=== PATIENT | female | born 1930 | race Caucasian/White ===

== ENCOUNTER 2017-01-20 17:23 | Inpatient (IN) | payer OTHER ==
[~2017-01-20] VITALS: Ht 152.4 cm; Wt 58.5 kg
[~2017-01-20 17:23] MED LIST: ALEN70TA30 PO; AMLO5TAB4 PO; DOCU-159 PO; HYDR-3498 PO; HYDR12.58 PO; LEVO88TA PO; LOVA20TA PO; METO25TA7 PO; PANT20TA3 PO; SITA50TA2 PO
[2017-01-20] MEDS ORDERED: NITROGLYCERIN 2% 1 GM OINT PKT TD STA (18:14)
[2017-01-20] MEDS ORDERED: ASPIRIN 81 MG TAB PO STA (18:14)
[2017-01-20 18:44] LABS: BASOPHILS % 0.2 % (0.0-2.0); EOSINOPHILS # 0.2 10^3/ul (0.0-0.5); EOSINOPHILS % 2.6 % (0.0-7.0); HEMATOCRIT 30.8 % (37.0-47.0); LYMPHOCYTES # 2.1 10^3/ul (0.8-2.9); LYMPHOCYTES % 25.3 % (15.0-51.0); MEAN CORPUSCULAR HEMOGLOBIN 29.4 pg (29.0-33.0); MEAN CORPUSCULAR HGB CONC 32.5 g/dl (32.0-37.0); MEAN CORPUSCULAR VOLUME 90.6 fl (82.0-101.0); MEAN PLATELET VOLUME 11.5 fl (7.4-10.4); MONOCYTE # 0.8 10^3/ul (0.3-0.9); MONOCYTES % 9.1 % (0.0-11.0); NEUTROPHILS % 62.4 % (39.0-77.0); PLATELET COUNT 182 10^3/UL (140-415); RED CELL DISTRIBUTION WIDTH 13.1 % (11.5-14.5); WHITE BLOOD COUNT 8.4 10^3/ul (4.8-10.8)
[2017-01-20 19:03] LABS: CALCIUM 8.4 mg/dl (8.4-10.2); CREATININE 2.22 mg/dl (0.44-1.00); POTASSIUM 5.2 mmol/L (3.5-5.1)
--- NOTE | 2017-01-20 19:03 | RADRPT ---
PROCEDURE: XR Chest. CLINICAL INDICATION: Chest pain. TECHNIQUE: Anterior chest x-ray. COMPARISON: None. FINDINGS: There is bibasilar subsegmental atelectasis. The lungs are otherwise clear. No pleural effusion identified. There is no evidence of pneumothorax. Heart size is large. There is atherosclerotic calcification of the aorta. There are median sternotom y wires and vascular clips suggesting prior CABG. The soft tissues are normal. Degenerative changes are noted in the bilateral shoulders and thoracic spine. IMPRESSION: 1. Cardiomegaly 2. Bibasilar atelectasis. 3. Atherosclerotic calcification of the aorta. 4. No evidence of pneumonia, effusion or pneumothorax. RPTAT: QQ .Aamir Hernandez MD, MD Date Time Electronically viewed and signed by .Aamir Hernandez MD, on 01/20/2017 19:02 .M/
[2017-01-20] MEDS ORDERED: METOPROLOL 5 MG INJ IV STA (19:13)
--- NOTE | 2017-01-20 19:13 | ERA ---
ER Documentation Chief Complaint Date/Time DATE: 01/20/17 TIME: 19:11 Chief Complaint chest disconfort today HPI This is a very pleasant 86-year-old female history of coronary disease status post CABG who presents because of chest pain. She describes it as a weight over the center of her chest that started this morning it is constant and nonexertional. She denies any back pain or pleuritic pain, no fevers or chills. She denies that this is her anginal equivalent and she describes that is more likely fatigue. She does not feel fatigued today. ROS All systems reviewed and are negative except as per history of present illness. Medications Home Meds Active Scripts Hydrocodone Bit-Acetaminophen* ([place]*) 5-325 Mg Tab, 1 TAB PO Q6 Y for PAIN, # 7 TAB Prov:AMBER JOYNERSON 10/16/15 Reported Medications Levothyroxine Sodium* (Synthroid*) 88 Mcg Tablet, 88 MCG PO BEFORE BREAKFAST, # 30 TAB 10/16/15 Pantoprazole* (Pantoprazole*) 20 Mg Tablet.dr, 20 MG PO DAILY, TAB 10/16/15 Metoprolol Succinate* (Toprol XL*) 25 Mg Tab.sr.24h, 25 MG PO DAILY, #30 TAB 10/16/15 Lovastatin* (Lovastatin*) 20 Mg Tablet, 40 MG PO HS, TAB 10/16/15 Sitagliptin* (Januvia*) 50 Mg Tablet, 50 MG PO DAILY, #30 TAB 10/16/15 Hydrochlorothiazide* (Hydrochlorothiazide*) 12.5 Mg Tablet, 12.5 MG PO DAILY, # 30 TAB 10/16/15 Docusate Sodium* (Docusate Sodium*) 100 Mg Capsule, 100 MG PO BID, #60 CAP 10/16/15 Amlodipine Besylate* (Norvasc*) 5 Mg Tablet, 5 MG PO DAILY, TAB 10/16/15 Alendronate Sodium* (Fosamax*) 70 Mg Tablet, 70 MG PO Q7D, #4 TAB 10/16/15 Allergies Allergies: Coded Allergies: Penicillins (Verified Allergy, Mild, 10/16/15) PMhx/Soc Hx Psychiatric Problems: No Hx Alcohol Use: No Hx Substance Use: No Hx Tobacco Use: No FmHx Family History: No diabetes Physical Exam Vitals Vital Signs Date Time Temp Pulse Resp B/P Pulse Ox O2 Delivery O2 Flow Rate FiO2 01/20/17 18:40 Nasal Cannula 2 01/20/17 17:24 98.1 72 18 194/75 96 Physical Exam General: Well developed, well nourished, no acute distress Head: Normocephalic, atraumatic. Eyes: Pupils equally reactive, EOM intact ENT: Moist mucous membranes Neck: Supple, no lymphadenopathy Respiratory: Lungs clear bilaterally, no distress Cardiovascular: RRR, no murmurs, rubs, or gallops Abdominal: Soft, non-tender, non-distended, no peritoneal signs : Deferred MSK: No edema, no unilateral swelling, 5/5 strength Neurologic: Alert and oriented, moving all extremities, normal speech, no focal weakness, no cerebellar signs Skin: No rash Psych: Normal mood Result Diagram: 01/20/17181901/20/171819 Results 24 hrs Laboratory Tests Test 01/20/17 18:20 White Blood Count 8.410^3/ul Red Blood Count 3.4010^6/ul Hemoglobin 10.0g/dl Hematocrit 30.8% Mean Corpuscular Volume 90.6fl Mean Corpuscular Hemoglobin 29.4pg Mean Corpuscular Hemoglobin Concent 32.5g/dl Red Cell Distribution Width 13.1% Platelet Count 30744^3/UL Mean Platelet Volume 11.5fl Neutrophils % 62.4% Lymphocytes % 25.3% Monocytes % 9.1% Eosinophils % 2.6% Basophils % 0.2% Nucleated Red Blood Cells % 0.0/100WBC Neutrophils # (Manual) 5.210^3/ul Lymphocytes # 2.110^3/ul Monocytes # 0.810^3/ul Eosinophils # 0.210^3/ul Basophils # 0.010^3/ul Nucleated Red Blood Cells # 0.010^3/ul Sodium Level 134mmol/L Potassium Level 5.2mmol/L Chloride Level 102mmol/L Carbon Dioxide Level 24mmol/L Anion Gap 13 Blood Urea Nitrogen 44mg/dl Creatinine 2.22mg/dl Glucose Level 137mg/dl Calcium Level 8.4mg/dl Troponin I 0.013ng/ml Current Medications Medications (Trade) Dose Ordered Sig/Hamzah Route PRN Reason Start Time Stop Time Status Last Admin Dose Admin Aspirin (Aspirin) 162 mg ONCE STAT PO 01/20/17 18:14 01/20/17 18:15 DC 01/20/17 18:30 Nitroglycerin (Nitroglycerin 2% Oint) 1 inch ONCE STAT TD 01/20/17 18:14 01/20/17 18:15 DC 01/20/17 18:29 Metoprolol Tartrate (Lopressor) 5 mg ONCE STAT IV 01/20/17 19:13 01/20/17 19:14 DC 01/20/17 19:23 Ondansetron HCl (Zofran Inj) 4 mg ER BRIDGE PRN IV NAUSEA AND/OR VOMITING 01/20/17 20:30 01/21/17 20:29 Acetaminophen (Tylenol Tab) 650 mg ER BRIDGE PRN PO MILD PAIN/FEVER 01/20/17 20:30 01/21/17 20:29 Procedures/MDM EKG, MONITORS, & DIAGNOSTIC IMAGING: EKG: I reviewed and interpreted a 12-lead EKG. Rhythm: Normal sinus rhythm Ectopy: None Intervals: No abnormalities ST segments: No elevations or depressions T waves: T-wave inversions in inferior and lateral leads Repeat EKG: EKG: I reviewed and interpreted a 12-lead EKG. Rhythm: Normal sinus rhythm Ectopy: None Intervals: No abnormalities ST segments: No elevations or depressions T waves: T-wave inversions in inferior and lateral leads Chest x-ray: I reviewed and interpreted a 1 view of the chest Mediastinum: No enlargement Cardiac silhouette: No cardiomegaly Airspace: Clear lung moreira bilaterally without evidence of pneumothorax Bones: No evidence of fracture LAB INTERPRETATION: Negative troponin, creatinine elevation from baseline MEDICAL DECISION MAKING: The patient's history, physical exam and clinical presentation is concerning for possible cardiogenic etiology and acute coronary syndrome. Based on the patient's clinical exam and history and risk factors, I have a much lower clinical concern for pulmonary embolism, acute aortic dissection, pneumothorax, pneumonia, cardiac tamponade HEART Score: 5 MACE Rate: 16.6% Shared Decision Making: We had a conversation regarding risk stratification, MACE rate, and the risks, benefits, alternatives of disposition planning options. Disposition planning: Given the patient's risk factors strong concern for cardiac etiology. Hospitalization strongly recommended per ER COURSE: Aspirin, nitroglycerin provided. The patient remains significantly hypertensive. Metoprolol 5 provided. The patient's blood pressures improved. Her creatinine is elevated from baseline possibly secondary to hypertensive disease process. The patient will benefit from inpatient hospitalization for further management. I kept the patient and/or family informed of laboratory and diagnostic imaging results throughout the emergency room course. DISPOSITION PLAN: Telemetry admission for risk stratification, serial enzymes and consideration of provocative testing CONSULTATION: Accepting care team and consultations: I discussed the current laboratory data, diagnostic imaging and emergency care provided. Admitting team: Dr. Light Admitting team indication: Insurance directed Departure Diagnosis: Primary Impression: Chest pain Qualified Code: R07.9 - Chest pain, unspecified type Additional Impressions: Acute renal insufficiency Hypertensive emergency Condition: Stable NELLI CLEMENT MD Jan 20, 2017 19:13
[2017-01-20 19:14] LABS: TROPONIN-I 0.013 ng/ml (0.00-0.12)
[2017-01-20] MEDS ORDERED: ONDANSETRON 4 MG INJ IV PRN (20:30)
[2017-01-20] MEDS ORDERED: ACETAMINOPHEN 325 MG TAB PO PRN (20:30)
[2017-01-20] MEDS ORDERED: hydrALAzine 20 MG INJ IV ONE (21:00)
[2017-01-20 23:27] VITALS: PULSE 60
[2017-01-20 23:51] VITALS: Ht 152.4 cm; Wt 58.5 kg
[2017-01-21] VITALS (17 sets, daily range): BP systolic 137–194; BP diastolic 60–80; PULSE 56–69; RESP 17–20
[2017-01-21] MEDS ORDERED: hydrALAzine 20 MG INJ IV PRN (00:30)
[2017-01-21] MEDS: hydrALAzine 20 MG INJ IV PRN (00:40)
[2017-01-21 00:57] LABS: CREATINE KINASE 151 IU/L (23-200)
[2017-01-21] MEDS ORDERED: NACL 0.9% 3 ML SYG IV SCH (01:00)
[2017-01-21] MEDS ORDERED: NITROGLYCERIN (SL) 0.4 MG TAB SL PRN (01:00)
[2017-01-21] MEDS ORDERED: morphine 2 MG INJ IV PRN (01:00)
[2017-01-21] MEDS ORDERED: BISACODYL (EC) 5 MG TAB PO PRN (01:00)
[2017-01-21] MEDS ORDERED: ONDANSETRON 4 MG INJ IV PRN (01:00)
[2017-01-21] MEDS ORDERED: ACETAMINOPHEN 325 MG TAB PO PRN (01:00)
[2017-01-21] MEDS ORDERED: DOCUSATE SODIUM 100 MG CAP PO PRN (01:00)
[2017-01-21] MEDS ORDERED: KETOROLAC 30 MG INJ IV STA (01:05)
[2017-01-21 01:11] LABS: CK-MB 1.99 ng/ml (0.0-2.4)
[2017-01-21] MEDS ORDERED: DIAZEPAM 5 MG/ML SYG IV STA (01:11)
[2017-01-21] MEDS ORDERED: KETOROLAC 30 MG INJ ONE (01:15)
[2017-01-21 01:16] LABS: TROPONIN-I < 0.012 ng/ml (0.00-0.12)
[2017-01-21] MEDS ORDERED: LORAZEPAM 2 MG INJ ONE (01:18)
[2017-01-21] MEDS ORDERED: SOD CHLORIDE 0.9% 1,000 ML IV ONE (01:30)
[2017-01-21] MEDS ORDERED: LORAZEPAM 2 MG INJ IV ONE (01:30)
[2017-01-21] MEDS ORDERED: DIAZEPAM 5 MG/ML SYG IV SCH (02:05)
[2017-01-21] MEDS ORDERED: MENTHOL/METH SALICYLATE 30 GM OINT TOP PRN (02:30)
--- NOTE | 2017-01-21 05:18 | HP ---
Date/Time of Note Date/Time of Note DATE: 01/21/17 TIME: 05:07 Assessment/Plan VTE Prophylaxis VTE Prophylaxis Intervention: SCD's Lines/Catheters IV C[facility]ter Type (from [facility]): Peripheral IV Urinary Cath still in place: No Assessment/Plan Chief Complaint/Hosp Course This is a 86-year-old female being admitted to the telemetry floor for: #1 chest pain: Rule out ACS. Patient has a history of CABG. At the current time will trend cardiac enzymes 3, first set negative. Will check a echocardiogram in the a.m. Consult cardiology. #2 muscle cramping: Possibly secondary to electrolyte abnormalities and/or mild dehydration. Will follow electrolytes. Will provide the patient with IV fluid hydration with normal saline bolus and maintenance. #3 Renal failure, acute versus chronic: Patient's previous creatinine was 1.3 in 2016 today it is 2.2. Will provide IV fluid hydration with normal saline 1 L bolus as well as maintenance fluid of normal saline. Will check a microscopic urine and a random sodium urine. Will consult nephrology. #4 hypertension: We will continue to monitor blood pressure, resume home medications #5 diabetes mellitus: Check hemoglobin A1c, insulin sliding scale #6 hypothyroidism: Check a TSH level, resume levothyroxine #7 DVT and GI prophylaxis: SCDs, acid rachid Further treatment strategy will be implemented as per the clinical course Problems: HPI/ROS Admit Date/Time Admit Date/Time Jan 20, 2017 at 20:07 Hx of Present Illness Chief complaint: Chest pressure This is a very pleasant 86-year-old female history of coronary disease status post CABG who presents because of chest pain. She describes it as a weight over the center of her chest that started this morning it is constant and nonexertional. She denies any back pain or pleuritic pain, no fevers or chills. She denies that this is her anginal equivalent and she describes that is more likely fatigue. She does not feel fatigued today. Upon my examination the patient she was in excruciating pain of her left lower extremity, the left lower extremity was visibly cramping. Patient states that she has been dealing with these cramps on a daily basis. She does take potassium supplements at home. Warm compresses placed by the RN at the bedside and the patient's left lower extremity and patient was given a massage along with normal saline bolus as well as Toradol and Valium and Bengay. Patient experienced relief after that. Allergies: Penicillins medications: See Jul Const: As per HPI Eyes : No pain discharge or redness or change in visual acuity ENT: No pain, sore throat, congestion, congestion, dysphagia or discharge Respiratory: No shortness of breath, cough, sputum, wheezing, or pleuritic pain Cardiovascular: As per HPI GI : no change in appetite, abdominal pain, nausea, vomiting, diarrhea, constipation, or change in the color his stool Genitourinary: No dysuria, hematuria, flank pain , discharge or CVA tenderness Musculoskeletal: As per HPI Skin: No rash, bruising or hives Neuro: No headache, dizziness, syncope, seizure, focal weakness Endocrine: No polyuria, polydipsia, temperature intolerance Psych: No hallucination, depression, anxiety or suicidal ideation PMH/Family/Social Past Medical History Hypertension, diabetes mellitus, hypothyroid, osteoporosis Past Surgical History CABG Family History Significant Family History: no pertinent family hx Social History Alcohol Use: none Smoking Status: Never smoker Drug Use: none Exam/Review of Systems Vital Signs Vitals Vital Signs Date Time Temp Pulse Resp B/P Pulse Ox O2 Delivery O2 Flow Rate FiO2 01/21/17 03:57 98.3 79 18 158/70 97 01/20/17 23:09 Room Air 01/20/17 18:40 2 Exam Exam General: Patient was lying in bed screaming in pain secondary to severe left lower extremity cramping, she did ultimately have relief through IV fluids, warm compression massage, Toradol Valium, BenGay.. HEENT: Atraumatic, normocephalic. The pupils are equal, round and reactive. Extraocular motor are intact Neck: Supple with full range of motion. No rigidity or meningismus Chest: Nontender Lungs: Clear to auscultation bilaterally no crackles rales or wheezing Heart: Normal S1-S2, Regular rhythm and rate. No overt murmur appreciated Abdomen: Soft , nontender, nondistended , bowel sounds are present. No guarding no rebound tenderness , No masses or organomegaly. No costovertebral temporal angle mass Extremities: Left lower extremity cramping with visible contraction. Neurologic: Normal mental status, speech normal, cranial nerves II through XII are intact, motor and sensory are intact, no focal weakness Additional Comments PROCEDURE: XR Chest. CLINICAL INDICATION: Chest pain. TECHNIQUE: Anterior chest x-ray. COMPARISON: None. FINDINGS: There is bibasilar subsegmental atelectasis. The lungs are otherwise clear. No pleural effusion identified. There is no evidence of pneumothorax. Heart size is large. There is atherosclerotic calcification of the aorta. There are median sternotomy wires and vascular clips suggesting prior CABG. The soft tissues are normal. Degenerative changes are noted in the bilateral shoulders and thoracic spine. IMPRESSION: 1. Cardiomegaly 2. Bibasilar atelectasis. 3. Atherosclerotic calcification of the aorta. 4. No evidence of pneumonia, effusion or pneumothorax. RPTAT: QQ .Aamir Hernandez MD, MD Date Time Electronically viewed and signed by .Aamir Hernandez MD, on 01/20/2017 19: 02 .M/ CC: NLELI CLEMENT MD EKG: Rhythm: Normal sinus rhythm Ectopy: None Intervals: No abnormalities ST segments: No elevations or depressions T waves: T-wave inversions in inferior and lateral leads As per ED physician augmentation Labs Result Diagram: 01/20/17181901/20/17 182 Medications Medications Current Medications Hydralazine HCl (Apresoline) 10 mg Q4H PRN IV ELEVATED BLOOD PRESSURE; Start at 00:30 Hydralazine HCl (Apresoline) 20 mg Q4H PRN IV ELEVATED BLOOD PRESSURE Last administered on 01/21/17t 00:40; Admin Dose 20 MG; Start 01/21/17 at 00:30 Ondansetron HCl (Zofran Inj) 4 mg Q6H PRN IV NAUSEA AND/OR VOMITING; Start 03/29 at 01:00 Aspirin (Aspirin) 81 mg DAILY PO ; Start 01/21/17 at 09:00 Nitroglycerin (Nitroglycerin (Sl Tab) 0.4 Mg) 1 tab Q5M PRN SL CHEST PAIN; Start 01/21/17 at 01:00 Acetaminophen (Tylenol Tab) 650 mg Q6H PRN PO PAIN LEVEL 1-3 OR FEVER; Start at 01:00 Morphine Sulfate (morphine) 2 mg Q4H PRN IV PAIN LEVEL 7-10; Start 01/21/17 at 01:00 Docusate Sodium (Colace) 100 mg Q12H PRN PO CONSTIPATION; Start 01/21/17 at 01: 00 Bisacodyl (Dulcolax) 5 mg DAILY PRN PO CONSTIPATION; Start 01/21/17 at 01:00 Famotidine (Pepcid) 20 mg DAILY PO ; Start 01/21/17 at 09:00 Menthol/Methyl Salicylate (Ra Jolly) 1 applic TID PRN TOP PRN Last administered on 01/21/17t 03:20; Admin Dose 1 APPLIC; Start 01/21/17 at 02:30 Amlodipine Besylate (Norvasc) 5 mg DAILY PO ; Start 01/21/17 at 09:00 Metoprolol Succinate (Toprol Xl) 25 mg DAILY PO ; Start 01/21/17 at 09:00 Atorvastatin Calcium (Lipitor) 10 mg HS PO ; Start 01/21/17 at 21:00 RYAN CHASE Jan 21, 2017 05:18
[2017-01-21] MEDS: SOD CHLORIDE 0.9% 1,000 ML IV SCH ×2 (05:54→21:05)
[2017-01-21] MEDS ORDERED: DIAZEPAM 5 MG/ML SYG IV PRN (06:00)
[2017-01-21] MEDS: LEVOTHYROXINE 88 MCG TAB PO SCH (07:00)
[2017-01-21 07:47] LABS: BASOPHILS % 0.2 % (0.0-2.0); EOSINOPHILS # 0.1 10^3/ul (0.0-0.5); EOSINOPHILS % 0.9 % (0.0-7.0); HEMATOCRIT 29.3 % (37.0-47.0); HEMOGLOBIN 9.2 g/dl (12.0-16.0); LYMPHOCYTES # 1.3 10^3/ul (0.8-2.9); LYMPHOCYTES % 15.5 % (15.0-51.0); MEAN CORPUSCULAR HEMOGLOBIN 28.7 pg (29.0-33.0); MEAN CORPUSCULAR HGB CONC 31.4 g/dl (32.0-37.0); MEAN CORPUSCULAR VOLUME 91.3 fl (82.0-101.0); MEAN PLATELET VOLUME 11.5 fl (7.4-10.4); MONOCYTE # 0.5 10^3/ul (0.3-0.9); MONOCYTES % 6.1 % (0.0-11.0); NEUTROPHILS % 76.8 % (39.0-77.0); PLATELET COUNT 167 10^3/UL (140-415); RED BLOOD COUNT 3.21 10^6/ul (4.20-5.40); RED CELL DISTRIBUTION WIDTH 13.2 % (11.5-14.5); WHITE BLOOD COUNT 8.1 10^3/ul (4.8-10.8)
[2017-01-21 08:23] LABS: ALBUMIN 2.7 g/dl (3.3-4.9); ALBUMIN/GLOBULIN RATIO 1.03; BILIRUBIN,INDIRECT 0.1 mg/dl (0-1.1); BILIRUBIN,TOTAL 0.1 mg/dl (0.2-1.3); CALCIUM 7.9 mg/dl (8.4-10.2); CREATININE 1.73 mg/dl (0.44-1.00); POTASSIUM 4.4 mmol/L (3.5-5.1); TOTAL PROTEIN 5.3 g/dl (6.1-8.1)
[2017-01-21 08:26] LABS: CK-MB 3.81 ng/ml (0.0-2.4); TROPONIN-I 0.117 ng/ml (0.00-0.12)
[2017-01-21] MEDS ORDERED: AMLODIPINE 5 MG TAB PO SCH (09:00)
[2017-01-21] MEDS: ASPIRIN 81 MG TAB PO SCH (09:46)
[2017-01-21] MEDS: FAMOTIDINE 20 MG TAB PO SCH (09:46)
[2017-01-21] MEDS: METOPROLOL (XL) 25 MG TAB PO SCH (09:48)
[2017-01-21 12:41] LABS: ADD UMIC YES; UR ASCORBIC ACID NEGATIVE (NEGATIVE); UR BACTERIA FEW /HPF (NONE SEEN); UR BILIRUBIN (Dip) NEGATIVE (NEGATIVE); UR BLOOD (Dip) NEGATIVE (NEGATIVE); UR BUDDING YEAST FEW /HPF (NONE SEEN); UR CLARITY CLEAR (CLEAR); UR COLOR YELLOW (YELLOW); UR GLUCOSE (Dip) NEGATIVE (NEGATIVE); UR KETONES (Dip) NEGATIVE (NEGATIVE); UR LEUKOCYTE ESTERASE (Dip) 2+ Leu/ul (NEGATIVE); UR NITRITE (Dip) NEGATIVE (NEGATIVE); UR RBC 1 /HPF (0-5); UR SPECIFIC GRAVITY (Dip) 1.006 (1.003-1.030); UR TOTAL PROTEIN (Dip) 2+ mg/dl (NEGATIVE); UR UROBILINOGEN (Dip) NEGATIVE (NEGATIVE)
--- NOTE | 2017-01-21 16:04 | RADRPT ---
Echocardiogram Report Patient Name: JEANIE PEDRAZA Gender: Female Date: 1930 Study Date: 21-Jan-2017 Core Blower Operator: Lavelle Taylor [facility] Location: 5550 Ref. Physician: RYAN CHASE Quality: Technically Difficult Study Procedures: Transthoracic echocardiogram with complete 2D, M-Mode, and doppler examination. Indications: Chest Pain. 2D/M Mode Doppler Measurement Value Normal Ranges Measurement Value Normal Ranges LVIDd 2D 4.4 3.5 - 5.6 cm AV Peak Rodriguez 1.9 m/sec LVIDs 2D 2.8 2.1 - 4.1 cm AV Peak PG 14.0 mmHg FS 2D 36.4 % AI Peak PG 72.0 mmHg LVPWd 2D 1.3 0.6 - 1.1 cm AI Peak Rodriguez 4.2 m/sec IVSd 2D 1.3 0.6 - 1.1 cm AI PHT 558.0 msec IVS/LVPW 2D 1.0 LVOT Peak Rodriguez 0.7 m/sec AoR Diam 2D 2.2 2.0 - 3.7 cm LVOT Peak PG 2.0 mmHg LA/Ao 2D 2 0 - 1 MV E Peak Rodriguez 1.2 m/sec EDV 2D 88.1 cm3 MV A Peak Rodriguez 1.7 m/sec ESV 2D 22.7 cm3 MV E/A 0.7 LA Dimen 2D 4.3 2.3 - 4.0 cm MV Peak Rodriguez 1.7 m/sec MV Peak PG 12.0 mmHg MV Mean Rodriguez 0.8 m/sec MV Mean PG 3.0 mmHg MV Decel Time 229 msec MV E/A 0.7 MV VTI 36.6 cm TR Peak Rodriguez 3.2 m/sec TR Peak PG 42.0 mmHg RVSP 45.0 mmHg Findings Left Ventricle: Overall, normal left ventricular systolic function. Not all segments visualized. Normal left ventricular cavity size. Mild concentric left ventricular hypertrophy. Ejection fraction is visually estimated at 55 %. Right Ventricle: Normal right ventricular size. Normal right ventricular systolic function. Left Atrium: There is mild enlargement of left atrium. Right Atrium: The right atrium is normal in size. Mitral Valve: Mitral valve leaflets appear moderately thickened. Mild mitral annular calcification. Trace mitral regurgitation. Aortic Valve: Aortic sclerosis without stenosis. Trace aortic valve regurgitation. Tricuspid Valve: Normal appearance and function of the tricuspid valve with trace physiologic regurgitation. Estimated peak PA systolic pressure 45 mmHg. Pulmonic Valve: Pulmonic valve not well visualized. There is mild to moderate pulmonic regurgitation. Pericardium: Normal pericardium with no significant pericardial effusion. Aorta: Normal aortic root. IVC: Normal size and normal respiratory collapse consistent with normal right atrial pressure. Conclusions Overall, normal left ventricular systolic function. Not all segments visualized. Normal left ventricular cavity size. Mild concentric left ventricular hypertrophy. Ejection fraction is visually estimated at 55 %. Normal right ventricular size. Normal right ventricular systolic function. There is mild enlargement of left atrium. The right atrium is normal in size. No significant valvular stenosis or regurgitation seen. Normal pericardium with no significant pericardial effusion. Electronically Signed By: González Sow 21-Jan-2017 16:03:38 -0700 Patient Name: JEANIE PEDRAZA Study Date: 21-Jan-2017 [id number]
--- NOTE | 2017-01-21 16:13 | CONS ---
Date/Time of Note Date/Time of Note DATE: 01/21/17 TIME: 16:05 Assessment/Plan Assessment/Plan Additional Assessment/Plan Fatigue and leg cramps Preserved ejection fraction CAD with history of CABG Diabetes Hypertension Acute kidney injury -In discussion with patient, she denies any chest pain or chest comfort. She complains of a "feeling" in chest yesterday which has since resolved. ECG does have inferolateral T-wave inversions, unclear if this is old or new. Serial cardiac enzymes remain negative and echocardiogram with preserved ejection fraction. She denies any exertional chest pain or shortness of breath. Given her renal dysfunction and atypical symptoms, would pursue aggressive medical management at the current time. Would recommend aspirin and statin therapy if no contraindication, beta-rachid as heart rate and blood pressure permits. Continue IV fluids, no KAREN inhibitor at the current time given acute kidney injury. Check venous Doppler Consultation Date/Type/Reason Admit Date/Time Jan 20, 2017 at 20:07 Type of Consultation: cv Reason for Consultation Cardiac evaluation Hx of Present Illness This is an 86-year-old female with past medical history of coronary artery disease with CABG in 2002, hypertension, diabetes who presents with multiple complaints. Patient states yesterday, she was feeling more tired and fatigued. She had a "feeling" in her mid chest and she became concerned. She denies chest pain, shortness of breath, dizziness. She complains of feeling tired in her chest. She does ambulate with occasional assistance and denies exertional chest pain or shortness of breath. She also complains of lower extremity cramping. Secondary to her fatigue, feeling in her chest and cramping of her legs, she came to the emergency room for further evaluation and care. Her cramping in her legs happens more so in the evening time. She denies exertional heaviness or cramping of her lower extremities. She currently denies any normal " feeling" in her chest. In 2002 when she had her CABG, this was secondary to a myocardial infarction which felt very different than her current symptoms. 12 point review of systems was performed with all pertinent positives and negatives mentioned above and all else is negative Past Medical History Medical History: coronary artery disease, diabetes, hypertension Past Surgical History Past Surgical Hx: coronary bypass surgery Family History Significant Family History: no pertinent family hx Social History Alcohol Use: none Smoking Status: Never smoker Drug Use: none Other Social History Lives at home, has a community coordinator Exam/Review of Systems Vital Signs Vitals Vital Signs Date Time Temp Pulse Resp B/P Pulse Ox O2 Delivery O2 Flow Rate FiO2 01/21/17 12:15 18 166/74 01/21/17 12:14 67 01/21/17 12:06 98.3 98 01/20/17 23:09 Room Air 01/20/17 18:40 2 Intake and Output 01/20/17 01/20/17 01/21/17 15:00 23:00 07:00 Intake Total 2000 ml Balance 2000 ml Exam No apparent distress, friend at bedside Constitutional: alert, oriented Head: normocephalic Respiratory: clear to auscultation, normal air movement Cardiovascular: other (S1-S2 heard), regular rate and rhythm Gastrointestinal: bowel sounds, non-tender, other (No guarding), soft Extremities: other (No edema) Results Result Diagram: 01/21/17 0657 01/21/17 0657 Results 24 hrs Laboratory Tests Test 01/20/17 18:20 01/21/17 00:20 01/21/17 00:35 01/21/17 03:52 White Blood Count 8.4 Red Blood Count 3.40 L Hemoglobin 10.0 L Hematocrit 30.8 L Mean Corpuscular Volume 90.6 Mean Corpuscular Hemoglobin 29.4 Mean Corpuscular Hemoglobin Concent 32.5 Red Cell Distribution Width 13.1 Platelet Count 182 Mean Platelet Volume 11.5 #H Neutrophils % 62.4 Lymphocytes % 25.3 Monocytes % 9.1 Eosinophils % 2.6 Basophils % 0.2 Nucleated Red Blood Cells % 0.0 Neutrophils # (Manual) 5.2 Lymphocytes # 2.1 Monocytes # 0.8 Eosinophils # 0.2 Basophils # 0.0 Nucleated Red Blood Cells # 0.0 Sodium Level 134 L Potassium Level 5.2 H Chloride Level 102 Carbon Dioxide Level 24 Anion Gap 13 Blood Urea Nitrogen 44 H Creatinine 2.22 H Glucose Level 137 Calcium Level 8.4 Troponin I 0.013 < 0.012 Magnesium Level 2.4 Creatine Kinase 151 Creatine Kinase Index 1.3 Creatinine Kinase MB (Mass) 1.99 Urine Color YELLOW Urine Clarity CLEAR Urine pH 7.0 Urine Specific [place] 1.006 Urine Ketones NEGATIVE Urine Nitrite NEGATIVE Urine Bilirubin NEGATIVE Urine Urobilinogen NEGATIVE Urine Leukocyte Esterase 2+ H Urine Microscopic RBC 1 Urine Microscopic WBC 12 H Urine Bacteria FEW A Urine Yeast (Budding) FEW A Urine Hemoglobin NEGATIVE Urine Random Creatinine 30.31 Urine Random Sodium 35 Urine Glucose NEGATIVE Urine Total Protein 157.0 H Test 01/21/17 06:53 01/21/17 06:57 Thyroid Stimulating Hormone (TSH) 1.090 White Blood Count 8.1 Red Blood Count 3.21 L Hemoglobin 9.2 L Hematocrit 29.3 L Mean Corpuscular Volume 91.3 Mean Corpuscular Hemoglobin 28.7 L Mean Corpuscular Hemoglobin Concent 31.4 L Red Cell Distribution Width 13.2 Platelet Count 167 Mean Platelet Volume 11.5 H Neutrophils % 76.8 Lymphocytes % 15.5 Monocytes % 6.1 Eosinophils % 0.9 Basophils % 0.2 Nucleated Red Blood Cells % 0.0 Neutrophils # (Manual) 6.3 Lymphocytes # 1.3 Monocytes # 0.5 Eosinophils # 0.1 Basophils # 0.0 Nucleated Red Blood Cells # 0.0 Sodium Level 136 Potassium Level 4.4 Chloride Level 107 Carbon Dioxide Level 24 Anion Gap 9 Blood Urea Nitrogen 38 H Creatinine 1.73 H Glucose Level 106 Hemoglobin A1c 6.3 H Calcium Level 7.9 L Total Bilirubin 0.1 L Direct Bilirubin 0.00 Indirect Bilirubin 0.1 Aspartate Amino Transf (AST/SGOT) 18 Alanine Aminotransferase (ALT/SGPT) 19 Alkaline Phosphatase 67 Creatine Kinase 272 H Creatine Kinase Index 1.4 Creatinine Kinase MB (Mass) 3.81 H Troponin I 0.117 Total Protein 5.3 L Albumin 2.7 L Globulin 2.60 Albumin/Globulin Ratio 1.03 Medications Medications Current Medications Hydralazine HCl (Apresoline) 10 mg Q4H PRN IV ELEVATED BLOOD PRESSURE; Start at 00:30 Hydralazine HCl (Apresoline) 20 mg Q4H PRN IV ELEVATED BLOOD PRESSURE Last administered on 01/21/17 00:40; Admin Dose 20 MG; Start 01/21/17 at 00:30 Ondansetron HCl (Zofran Inj) 4 mg Q6H PRN IV NAUSEA AND/OR VOMITING; Start 03/29 at 01:00 Aspirin (Aspirin) 81 mg DAILY PO Last administered on 01/21/17 09:46; Admin Dose 81 MG; Start 01/21/17 at 09:00 Nitroglycerin (Nitroglycerin (Sl Tab) 0.4 Mg) 1 tab Q5M PRN SL CHEST PAIN; Start 01/21/17 at 01:00 Acetaminophen (Tylenol Tab) 650 mg Q6H PRN PO PAIN LEVEL 1-3 OR FEVER; Start at 01:00 Morphine Sulfate (morphine) 2 mg Q4H PRN IV PAIN LEVEL 7-10; Start 01/21/17 at 01:00 Docusate Sodium (Colace) 100 mg Q12H PRN PO CONSTIPATION; Start 01/21/17 at 01: 00 Bisacodyl (Dulcolax) 5 mg DAILY PRN PO CONSTIPATION; Start 01/21/17 at 01:00 Famotidine (Pepcid) 20 mg DAILY PO Last administered on 01/21/17 09:46; Admin Dose 20 MG; Start 01/21/17 at 09:00 Menthol/Methyl Salicylate (Ra Jolly) 1 applic TID PRN TOP PRN Last administered on 01/21/17 03:20; Admin Dose 1 APPLIC; Start 01/21/17 at 02:30 Amlodipine Besylate (Norvasc) 5 mg DAILY PO Last administered on 01/21/17 09: 47; Admin Dose 5 MG; Start 01/21/17 at 09:00 Metoprolol Succinate (Toprol Xl) 25 mg DAILY PO Last administered on 01/21/17 09:48; Admin Dose 25 MG; Start 01/21/17 at 09:00 Atorvastatin Calcium 10 mg 10 mg HS PO ; Start 01/21/17 at 21:00 Sodium Chloride (NS) 1,000 ml @ 70 mls/hr [id number] IV Last administered on 01/21 05:54; Admin Dose 70 MLS/HR; Start 01/21/17 at 06:00 Diazepam (Valium) 2 mg Q2H PRN IV MUSCLE SPASMS; Start 01/21/17 at 06:00 Procedures Procedures ECG done yesterday demonstrates sinus rhythm at 63 bpm, QRS 106 ms, inferior and lateral T-wave inversions González Sow DO Jan 21, 2017 16:13
--- NOTE | 2017-01-21 18:53 | CONS ---
DATE OF ADMISSION: 01/20/2017 DATE OF CONSULTATION: 01/21/2017 REASON FOR CONSULTATION: Acute kidney injury. HISTORY OF PRESENT ILLNESS: This is an 86-year-old female with a past medical history of coronary artery disease status post CABG, history of hypertension, history of dyslipidemia, history of diabetes, a questionable history of CKD, who presents to [facility] with chest pain. The patient, in the emergency room, was given Toradol, aspirin, nitroglycerin and admitted to telemetry for evaluation. In terms of patient's renal history, she denies having any prior history of chronic kidney disease. However, previous laboratory data from 1 year ago showed a creatinine of 1.30 mg/dL. The patient denies any frothy urine, any hemoptysis, hematemesis, or hematochezia. PAST MEDICAL HISTORY: As stated above. History of hypertension, diabetes, hypothyroidism, history muscle cramping. PAST SURGICAL HISTORY: CABG. FAMILY HISTORY: Noncontributory. SOCIAL HISTORY: She does not drink, smoke, or do drugs. MEDICATION: Reviewed. REVIEW OF SYSTEMS: Fourteen point review of systems was conducted. Pertinent positives stated in HPI, otherwise negative. PHYSICAL EXAMINATION: VITAL SIGNS: Blood pressure 163/71, respirations 20, pulse 68, temperature 98. HEENT: Head is normocephalic. NECK: Supple. HEART: Regular rate. LUNGS: Show diminished breath sounds at the base. ABDOMEN: Soft, nontender to palpation. No rebound or guarding. EXTREMITIES: Negative for clubbing, cyanosis. No edema. DERMATOLOGIC: Clean. No rashes. MUSCULOSKELETAL: No joint effusion. NEUROLOGIC: No change and no focal deficits. LABORATORY: Shows white count 8.1, hemoglobin 9.2, hematocrit 29.3, platelet count is 167. Sodium 136, potassium 4.4, chloride 107, BUN 30, creatinine 1.73. The patient's chest x-ray shows no pneumonia. IMPRESSION AND PLAN: This is an 86-year-old female who presents with: 1. Nonoliguric acute kidney injury with unknown baseline creatinine. Possible chronic kidney disease. Etiology of acute kidney injury appears to be hemodynamics, possibly secondary to diuretic therapy/hydrochlorothiazide effect. Plan at this point is to check a urinalysis with microanalysis. Will check urine electrolytes. Will check a renal ultrasound. The patient's renal function has improved with supportive care. Would otherwise continue current treatment plan and renally dose all medications. Please also note, I would recommend to avoid any nonsteroidal antiinflammatory drugs use during this hospital course, and in the setting of acute kidney injury. 2. Anemia. Will monitor H and H levels. 3. Mineral bone disorder. Monitor calcium and phosphorus levels. 4. Hypertension. Continue current blood pressure regimen. 5. Chest pain. Rule out acute coronary syndrome. Continue check serial troponins. Follow up 2D echo. Continue current medical management. Thank you, Dr. Light, for this interesting consult. It will be a pleasure to follow patient with you throughout the hospital course. Dictated By: Joel Li DO /chris/jennie /Document#: [id number]
--- NOTE | 2017-01-21 20:37 | RADRPT ---
PROCEDURE: Ultrasound of the bilateral lower extremity venous system. CLINICAL INDICATION: Bilateral leg pain and swelling, deep venous thrombosis TECHNIQUE: Navarro scale with and without compression, color doppler, spectral doppler of the venous system of the bilateral lower extremities was performed. Venous augmentation maneuvers were utilized . COMPARISON: 10/16/2015 FINDINGS: RIGHT: Common femoral vein: Patent. Femoral vein: Patent. Popliteal vein: Patent. Calf veins: Patent. No soft tissue abnormalities are identified. LEFT: Common femoral vein: Patent. Femoral vein: Patent. Popliteal vein: Patent. Calf veins: Patent. No soft tissue abnormalities are identified. IMPRESSION: No evidence of a deep vein thrombosis within the bilateral lower extremities. RPTAT: AADD .Mian Kang MD, MD Date Time Electronically viewed and signed by .Mian Kang MD, on 01/21/2017 20:37 .B/
[2017-01-21] MEDS ORDERED: ATORVASTATIN 20 MG TAB PO SCH (21:00)
[2017-01-21] MEDS ORDERED: ATORVASTATIN 10 MG TAB PO SCH (21:00)
[2017-01-21] MEDS: AMLODIPINE 5 MG TAB PO SCH (21:06)
--- NOTE | 2017-01-21 23:41 | RADRPT ---
PROCEDURE: US renal. CLINICAL INDICATION: Acute kidney injury. TECHNIQUE: Navarro scale and color Doppler imaging of the kidneys and bladder. COMPARISON: None Available. FINDINGS: Right kidney: 7 cm in length. Increased echogenicity. No nephrolithiasis, hydronephrosis, or renal mass. Left kidney: 6.7 cm in length. Increased echogenicity. No nephrolithiasis, hydronephrosis, or renal mass. Bladder: Distended and unremarkable. IMPRESSION: 1. Bilateral atrophic and echogenic kidneys, consistent with medical renal disease. RPTAT: HLBP .Jim Rojas MD, Date Time Electronically viewed and signed by .Jim Rojas MD, on 01/21/2017 23:41 .P/
[2017-01-22] VITALS (11 sets, daily range): BP systolic 130–175; BP diastolic 62–76; PULSE 56–68; RESP 17–18
[2017-01-22] MEDS: LEVOTHYROXINE 88 MCG TAB PO SCH (06:48)
[2017-01-22 07:42] LABS: BASOPHILS % 0.7 % (0.0-2.0); EOSINOPHILS # 0.2 10^3/ul (0.0-0.5); EOSINOPHILS % 2.6 % (0.0-7.0); HEMATOCRIT 32.8 % (37.0-47.0); HEMOGLOBIN 10.2 g/dl (12.0-16.0); LYMPHOCYTES # 1.1 10^3/ul (0.8-2.9); LYMPHOCYTES % 18.8 % (15.0-51.0); MEAN CORPUSCULAR HEMOGLOBIN 28.7 pg (29.0-33.0); MEAN CORPUSCULAR HGB CONC 31.1 g/dl (32.0-37.0); MEAN CORPUSCULAR VOLUME 92.1 fl (82.0-101.0); MEAN PLATELET VOLUME 11.2 fl (7.4-10.4); MONOCYTE # 0.4 10^3/ul (0.3-0.9); MONOCYTES % 6.4 % (0.0-11.0); PLATELET COUNT 174 10^3/UL (140-415); RED BLOOD COUNT 3.56 10^6/ul (4.20-5.40); RED CELL DISTRIBUTION WIDTH 13.3 % (11.5-14.5); WHITE BLOOD COUNT 6.1 10^3/ul (4.8-10.8)
[2017-01-22 08:14] LABS: CALCIUM 8.4 mg/dl (8.4-10.2); CREATININE 1.52 mg/dl (0.44-1.00); MAGNESIUM 2.2 mg/dl (1.7-2.5); PHOSPHORUS 3.6 mg/dl (2.5-4.9); POTASSIUM 4.1 mmol/L (3.5-5.1)
[2017-01-22] MEDS: FAMOTIDINE 20 MG TAB PO SCH (09:22)
[2017-01-22] MEDS: ASPIRIN 81 MG TAB PO SCH (09:23)
[2017-01-22] MEDS: AMLODIPINE 5 MG TAB PO SCH (09:23)
[2017-01-22] MEDS: METOPROLOL (XL) 25 MG TAB PO SCH (09:23)
[2017-01-22] MEDS: SOD CHLORIDE 0.9% 1,000 ML IV SCH (10:36)
--- NOTE | 2017-01-22 11:21 | PN ---
DATE: 01/22/2017 SUBJECTIVE DATA: The patient is stable. No events overnight. No fevers, chills, nausea, vomiting. No shortness of breath. OBJECTIVE DATA: VITAL SIGNS: Blood pressure is 174/73, respirations 18, pulse 70, temperature 98.6. HEENT: Head is normocephalic. NECK: Supple. HEART: Regular rate. LUNGS: Diminished breath sounds at the base. ABDOMEN: Soft, nontender to palpation. No rebound or guarding. EXTREMITIES: Negative for clubbing, cyanosis. No edema. DERMATOLOGIC: Clean. No rashes. MUSCULOSKELETAL: No joint effusion. NEUROLOGIC: No change in exam. MEDICATIONS: Reviewed. LABORATORY AND DIAGNOSTIC DATA: Shows sodium 144, BUN 28, creatinine 1.52. White count 6.1, hemoglobin 10.2, hematocrit 32.8, platelet count is 174,000. The patient has a protein/creatinine ratio approximately 4 grams creatinine no greater than 1 percent. No hematuria, 12 RBCs. ASSESSMENT AND PLAN: 1. Nonoliguric acute kidney injury with unknown baseline creatinine. Possible chronic kidney disease. Etiology of acute kidney injury appears to be hemodynamics from diuretic therapy. The patient's renal function has improved with supportive care. The patient's urinalysis does not show an active sediment; however the patient does have nephrotic range proteinuria. Would recommend further evaluation by checking SPEP, UPEP with immunofixation, as well as doing serologic workup. However, this can be done as an outpatient as the patient has expressed desire to leave. If the patient is to remain in the hospital will order serological workup, otherwise would recommend outpatient follow up with Nephrology. 2. Anemia. Monitor hemoglobin and hematocrit levels. 3. Mineral bone disorder. Monitor calcium and phosphorus levels. 4. Hypertension. Continue current blood pressure regimen. 5. Chest pain, improved. Continue current medical management. Follow up with Cardiology. Dictated By: Joel Li DO /chris/fortunato /Document#: [id number]
[2017-01-22] MEDS: hydrALAzine 20 MG INJ IV PRN (12:14)
[2017-01-22] MEDS ORDERED: AMLO-218 PO (12:19)
[2017-01-22] MEDS ORDERED: ASPI81TA3 PO (12:19)
--- NOTE | 2017-01-22 12:20 | PDOCDIS ---
Discharge Instructions CONDITION Patient Condition: Good HOME CARE INSTRUCTIONS: Special Diet: Low Carb ACTIVITY: Activity Restrictions: No Restrictions FOLLOW UP/APPOINTMENTS Follow-up Plan F/U WITH YOUR PCP SCHEDULED LEON MARTINEZ Jan 22, 2017 12:20
--- NOTE | 2017-01-22 16:52 | DS ---
Date/Time of Note Date/Time of Note DATE: 01/22/17 TIME: 16:23 Discharge Summary Admission/Discharge Info Admit Date/Time Jan 20, 2017 at 20:07 Discharge Date/Time January 22, 2017 Discharge Diagnosis #1 chest pain: Likely muscle skeletal, resolved ACS ruled out 2D echo shows no significant findings #2 muscle cramping: Resolved with IV fluids #3 Renal failure-acute on chronic Improved with IV fluids #4 hypertension: Changed Norvasc to 10 mg #5 diabetes mellitus: Resume meds #6 hypothyroidism: Continue home meds Patient Condition: Good Hospital Course Patient is an 86-year-old female with past medical history of coronary artery disease with CABG in 2002, hypertension, diabetes who presents chest pain and muscle cramps. This was ruled out the patient's chest pain resolved. Patient' s Norvasc was increased to 10 mg which is told that she needs follow-up with her PCP for further BP control. Patient was dehydrated and had acute on likely chronic kidney disease with IV fluids. Patient did not want any further diagnostics wanted to be discharged home to follow-up with her PCP. Patient was felt to be stable for DC and on day of discharge patient's vitals, labs and physical exam are stable, she no acute complaints. Patient refused home health. Home Meds Active Scripts Amlodipine Besylate* (Norvasc*) 10 Mg Tablet, 10 MG PO DAILY, #60 TAB Prov:LEON MARTINEZ 01/22/17 Aspirin (Aspirin) 81 Mg Chew, 81 MG PO DAILY, #60 TAB 3 Refills Prov:LEON MARTINEZ 01/22/17 Hydrocodone Bit-Acetaminophen* ([place]*) 5-325 Mg Tab, 1 TAB PO Q6 Y for PAIN, # 7 TAB Prov:MALACHI JOYNER 10/16/15 Reported Medications Levothyroxine Sodium* (Synthroid*) 88 Mcg Tablet, 88 MCG PO BEFORE BREAKFAST, # 30 TAB 10/16/15 Pantoprazole* (Pantoprazole*) 20 Mg Tablet.dr, 20 MG PO DAILY, TAB 10/16/15 Metoprolol Succinate* (Toprol XL*) 25 Mg Tab.sr.24h, 25 MG PO DAILY, #30 TAB 10/16/15 Lovastatin* (Lovastatin*) 20 Mg Tablet, 40 MG PO HS, TAB 10/16/15 Sitagliptin* (Januvia*) 50 Mg Tablet, 50 MG PO DAILY, #30 TAB 10/16/15 Hydrochlorothiazide* (Hydrochlorothiazide*) 12.5 Mg Tablet, 12.5 MG PO DAILY, # 30 TAB 10/16/15 Docusate Sodium* (Docusate Sodium*) 100 Mg Capsule, 100 MG PO BID, #60 CAP 10/16/15 Alendronate Sodium* (Fosamax*) 70 Mg Tablet, 70 MG PO Q7D, #4 TAB 10/16/15 Discontinued Reported Medications Amlodipine Besylate* (Norvasc*) 5 Mg Tablet, 5 MG PO DAILY, TAB 10/16/15 Follow-up Plan F/U WITH YOUR PCP SCHEDULED Primary Care Provider Pramod Mahmood Time spent on discharge: > 30 minutes LEON MARTINEZ Jan 22, 2017 16:34 10/16/15 Pantoprazole* (Pantoprazole*) 20 Mg Tablet.dr, 20 MG PO DAILY, TAB 10/16/15 Metoprolol Succinate* (Toprol XL*) 25 Mg Tab.sr.24h, 25 MG PO DAILY, #30 TAB 10/16/15 Lovastatin* (Lovastatin*) 20 Mg Tablet, 40 MG PO HS, TAB 10/16/15 Sitagliptin* (Januvia*) 50 Mg Tablet, 50 MG PO DAILY, #30 TAB 10/16/15 Hydrochlorothiazide* (Hydrochlorothiazide*) 12.5 Mg Tablet, 12.5 MG PO DAILY, # 30 TAB 10/16/15 Docusate Sodium* (Docusate Sodium*) 100 Mg Capsule, 100 MG PO BID, #60 CAP 10/16/15 Alendronate Sodium* (Fosamax*) 70 Mg Tablet, 70 MG PO Q7D, #4 TAB 10/16/15 Discontinued Reported Medications Amlodipine Besylate* (Norvasc*) 5 Mg Tablet, 5 MG PO DAILY, TAB 10/16/15 Follow-up Plan F/U WITH YOUR PCP SCHEDULED Primary Care Provider Pramod Mahmood Pending Labs Laboratory Tests Test 01/22/17 07:14 White Blood Count 6.110^3/ul (4.8-10.8) Red Blood Count 3.5610^6/ul (4.20-5.40) Hemoglobin 10.2g/dl (12.0-16.0) Hematocrit 32.8% (37.0-47.0) Mean Corpuscular Volume 92.1fl (82.0-101.0) Mean Corpuscular Hemoglobin 28.7pg (29.0-33.0) Mean Corpuscular Hemoglobin Concent 31.1g/dl (32.0-37.0) Red Cell Distribution Width 13.3% (11.5-14.5) Platelet Count 41690^3/UL (140-415) Mean Platelet Volume 11.2fl (7.4-10.4) Neutrophils % 71.0% (39.0-77.0) Lymphocytes % 18.8% (15.0-51.0) Monocytes % 6.4% (0.0-11.0) Eosinophils % 2.6% (0.0-7.0) Basophils % 0.7% (0.0-2.0) Nucleated Red Blood Cells % 0.0/100WBC (0.0-0.0) Neutrophils # (Manual) 4.310^3/ul (1.7-7.5) Lymphocytes # 1.110^3/ul (0.8-2.9) Monocytes # 0.410^3/ul (0.3-0.9) Eosinophils # 0.210^3/ul (0.0-0.5) Basophils # 0.010^3/ul (0.0-0.1) Nucleated Red Blood Cells # 0.010^3/ul (0.0-0.0) Sodium Level 144mmol/L (135-144) Potassium Level 4.1mmol/L (3.5-5.1) Chloride Level 115mmol/L (97-110) Carbon Dioxide Level 23mmol/L (21-31) Anion Gap 10 (8-16) Blood Urea Nitrogen 28mg/dl (7-20) Creatinine 1.52mg/dl (0.44-1.00) Glucose Level 123mg/dl (70-220) Calcium Level 8.4mg/dl (8.4-10.2) Phosphorus Level 3.6mg/dl (2.5-4.9) Magnesium Level 2.2mg/dl (1.7-2.5) LEON MARTINEZ Jan 22, 2017 16:34
[2017-01-23 15:42] LABS: MICROALBUMIN 65.2 mg/dL
== END 2017-01-22 16:36 | disposition home or self-care (01) | DRG 313 ==
LOC: E/R 17:23 → MS4 20:07
PROVIDERS: ADMIT Family Medicine; ATTEND Family Medicine
DX: R07.89 Other chest pain (principal); I25.10 Atherosclerotic heart disease of native coronary artery without angina pectoris; N17.9 Acute kidney failure, unspecified; E11.22 Type 2 diabetes mellitus with diabetic chronic kidney disease; E83.9 Disorder of mineral metabolism, unspecified; D64.9 Anemia, unspecified; E03.9 Hypothyroidism, unspecified; Z95.1 Presence of aortocoronary bypass graft; M81.0 Age-related osteoporosis without current pathological fracture; E78.5 Hyperlipidemia, unspecified; M89.8X9 Other specified disorders of bone, unspecified site; R25.2 Cramp and spasm; I12.9 Hypertensive chronic kidney disease with stage 1 through stage 4 chronic kidney disease, or unspecified chronic kidney disease; N18.9 Chronic kidney disease, unspecified
CPT/HCPCS: 36415; 71010; 76775; 80048; 80053; 81001; 81003; 82043; 82550; 82553; 83036; 83735; 84100; 84155; 84300; 84443; 84484; 85025; 93005; 93306; 93970; 96374; 96375; 97162; J0360; J1885; J2060; J3360; J7030